=== PATIENT | female | born 1950 | race Caucasian/White ===

== ENCOUNTER 2016-02-18 16:09 | Emergency (ER) | payer MEDICARE ==
[2016-02-18 16:14] VITALS: BP 181/83
[2016-02-18] MEDS ORDERED: NS 0.9% 1000 ML* 1,000 ML IV ONE (17:26)
[2016-02-18] MEDS ORDERED: Ketorolac INJ* 30 MG/ML 1 ML VIAL IV ONE (17:29)
[2016-02-18] MEDS ORDERED: Ondansetron INJ* 2 MG/ML VIAL ONE (17:33)
[2016-02-18] MEDS ORDERED: Ondansetron INJ* 2 MG/ML VIAL IV ONE ×2 (17:33→19:13)
[2016-02-18 17:53] LABS: Hematocrit 44 % (35-47); Hemoglobin 14.8 g/dl (12.0-16.0); Mean Corpuscular HGB Conc 34 g/dl (31-36); Mean Corpuscular Hemoglobin 30 pg (27-31); Mean Corpuscular Volume 88 fL (80-97); Mean Platelet Volume 7 um3 (7.4-10.4); Red Blood Count 4.98 10^6/ul (4.0-5.4); Red Cell Distribution Width 13 % (10.5-15); White Blood Count 10.8 10^3/ul (3.5-10.8)
[2016-02-18 17:54] LABS: Urine Bilirubin Negative (Negative); Urine Glucose Negative (Negative); Urine Nitrite Negative (Negative)
[2016-02-18 18:04] LABS: Albumin 4.8 g/dL (3.2-5.2); BUN/Creatinine Ratio 16.5 (8-20); Calcium 9.8 mg/dL (8.6-10.3); EGFR African American 68.7 (>60); EGFR Non-African American 53.4 (>60); Potassium 3.7 mmol/L (3.5-5.0); Total Protein 7.9 g/dL (6.4-8.9)
--- NOTE | 2016-02-18 18:04 | RAD ---
INDICATION: LEFT flank and LEFT lower quadrant pain. Possible kidney stone. COMPARISON: April 29, [address] which includes the kidneys. TECHNIQUE: Multidetector CT images were obtained from the lung bases to the ischial tuberosities. Evaluation of the viscera is limited without IV contrast. Multiplanar reformation. REPORT: Clear lung bases. Small fat-containing LEFT posterior medial diaphragmatic hernia without change. Normal size liver is diffusely decreased in density consistent with fatty infiltration with focal sparing at the gallbladder fossa. No CT abnormality of the gallbladder, pancreas, spleen. No CT abnormality of the upper GI or small bowel. The appendix is not visualized. Negative for RIGHT lower quadrant inflammatory change. A few colonic diverticula are visualized without findings of acute diverticulitis. Negative for ascites, free air, or significant hernias. Normal adrenal glands. Mild LEFT hydronephrosis is traced to a far distal 3.5 mm LEFT ureteral stone approximating the ureterovesicular junction. Similar size stone previously visualized at upper pole calyx of the LEFT kidney no longer present on the current exam. No additional urolithiasis. Negative for RIGHT hydronephrosis. Unremarkable partially distended urinary bladder. The uterus is not visualized. Unremarkable adnexal regions. Negative for lymphadenopathy. Normal diameter abdominal aorta and iliac arteries. Partial physiologic distention of the IVC. Grossly simple appearing sharply circumscribed fat density lesion extends along the anterior margin of the LEFT psoas muscle from the level of the inferior pole of the LEFT kidney to the lesser trochanter measuring up to 3.6 cm AP by 3.4 cm transverse anterior to the LEFT femoral neck. The visualized portion of this lesion is unchanged compared with the 2012 exam. Small bone island at the RIGHT ischial tuberosity. No suspicious focal osseous lesions evident. IMPRESSION: 1. Mild LEFT hydronephrosis is traced to a far distal 3.5 mm LEFT ureteral stone approximating the ureterovesicular junction. 2. Fatty infiltration of the liver. 3. Large LEFT retroperitoneal lipoma. As the lesion is incompletely visualized on the prior exam follow-up noncontrast CT to assess for stability is suggested in 12 months time.
[2016-02-18 18:05] LABS: Globulin 3.1 g/dL (2-4); Total Bilirubin 0.4 mg/dL (0.2-1.0)
[2016-02-18] MEDS ORDERED: Morphine INJ* 4 MG/ML 1 ML CARPUJECT IV ONE (19:13)
--- NOTE | 2016-02-18 21:07 | ED ---
Harley Melo Rebecca, scribed for Eleuterio Hamm MD on 02/18/16 at 1724 . Abdominal Pain/Female - HPI Summary HPI Summary: Pt is a 65 y/o F who presents to ED c/o abd pain. Pain began suddenly at 1415 today and has been constant since onset. Pain is located in the LLQ with radiation to the L flank. Characterized as sharp and currently moderate, ranked 6/10. Sx aggravated and alleviated by nothing. Additionally c/o nausea and bloating. Denies V/D, constipation. No prior similar episodes. PMHx kidney stones (1x in 2011). - History of Current Complaint Chief Complaint: EDFlankPain Stated Complaint: POSS KIDNEY STONE Time Seen by Provider: 02/18/16 17:21 Hx Obtained From: Patient Onset/Duration: Sudden Onset, Lasting Hours - 1415, Still Present Timing: Constant Severity Initially: Moderate Severity Currently: Moderate Pain Intensity: 6 Pain Scale Used: 0-10 Numeric Location: Discrete At: LLQ Radiates: Yes Radiates to: Back - Left flank Character: Sharp Aggravating Factor(s): Nothing Alleviating Factor(s): Nothing Associated Signs and Symptoms: Positive: Nausea, Other: - Bloating. Negative: Constipation, Vomiting, Diarrhea Allergies/Adverse Reactions: Allergies Allergy/AdvReac Type Severity Reaction Status Date / Time Amoxicillin Allergy Rash Verified 11/14/15 10:17 Penicillins [PCN] Allergy Unknown Verified 11/14/15 10:17 Reaction Details PMH/Surg Hx/FS Hx/Imm Hx Cardiovascular History: Reports: Hx Hypertension History: Reports: Hx Kidney Stones Musculoskeletal History: Reports: Other Musculoskeletal History - Hx herniated discs - Surgical History Surgery Procedure, Year, and Place: APPY, HYSTERECTOMY Infectious Disease History: No Infectious Disease History: Denies: Traveled Outside the [place] in Last 30 Days - Family History Known Family History: Negative: Cardiac Disease, Hypertension - Social History Lives: With Family Alcohol Use: Weekly Hx Tobacco Use: No Smoking Status (MU): Never Smoked Tobacco Review of Systems Positive: Abdominal Pain - LLQ radiates into the L flank, Nausea, Other - Bloating. Negative: Vomiting, Diarrhea Positive: other - Denies constipation All Other Systems Reviewed And Are Negative: Yes Physical Exam - Summary Physical Exam Summary: VITAL SIGNS: Reviewed. GENERAL: Patient is a well developed and nourished female who is lying comfortable in the stretcher. Patient is not in any acute respiratory distress. HEAD AND FACE: Normocephalic and atraumatic. EYES: PERRLA, EOMI x 2, No injected conjunctiva. EARS: Hearing grossly intact. Ear canals and tympanic membranes are WNL. MOUTH: Oropharynx within normal limits. NECK: Supple, trachea is midline, no adenopathy, no JVD. CHEST: Symmetric, no tenderness at palpation LUNGS: Clear to auscultation bilaterally. No wheezing or crackles. CVS: RRR,, S1 and S2 present, no murmurs or gallops appreciated. ABDOMEN: Soft, LLQ tenderness. No signs of distention. Positive bowel sounds. No rebound no guarding, and no masses palpated. No abdominal bruit or pulsations. EXTREMITIES: FROM in all major joints, no edema, no cyanosis or clubbing. NEURO: Alert and oriented x 3. No acute neurological deficits. Speech is normal. SKIN: Dry and warm Vital Signs On Initial Exam: Initial Vitals Temp Pulse Resp BP Pulse Ox 97.3 F 98 16 181/83 100 02/18/16 16:12 02/18/16 16:12 02/18/16 16:12 02/18/16 16:12 02/18/16 16:12 Diagnostics - Vital Signs Vital Signs Temp Pulse Resp BP Pulse Ox 02/18/16 16:12 97.3 F 98 16 181/83 100 - Laboratory Result Diagrams: 02/18/16 17:27 02/18/16 17:27 Lab Statement: Any lab studies that have been ordered have been reviewed, and results considered in the medical decision making process. - CT CT Abd/Pel CT Interpretation Completed By: Radiologist - 1. Mild LEFT hydronephrosis is traced to a far distal 3.5 mm LEFT ureteral stone approximating the ureterovesicular junction. 2. Fatty infiltration of the liver. 3. Large LEFT retroperitoneal lipoma. As the lesion is incompletely visualized on the prior exam follow-up noncontrast CT to assess for stability is suggested in 12 months time. Abdominal Pain Fem Course/Dx - Course Course Of Treatment: 65 y/o F who presents to ED with a CC of L flank pain. Test results within normal limits except for creatinine of 1.02. CT of the abd/ pel shows mild L hydronephrosis with a 3.5 mm L ureter stone, approximating the UVJ. In the ED course, the pt was given if fluids, toradol and morphine for the pain and Zofran for N/V. After pain meds were given the sx seemed to resolve. She was in the ED for a couple hours and sx did not return so she will be d/c to home with a follow up with PCP and urology. I discussed all the findings and test results with the patient and patient. Patient was instructed to return to the emergency room immediately if any of the symptoms return or worsens. They understand and agree. They were explained the possibility of an early abdominal pathology which was not detected at this time despite the physical exam and testing. They understand and agree. Abdominal exam before discharge: Soft,NT. No signs of distention. BS present. No rebound no guarding, and no masses palpated. Patient is alert and oriented. Patient is hemodynamically stable. Patient is to follow up with primary care physician in the next 24 hours. Patient and patients parents agree and understands. - Diagnoses Provider Diagnoses: Kidney stone Discharge - Discharge Plan Condition: Stable Disposition: HOME Patient Education Materials: Kidney Stones (ED) Referrals: Ryan Melendez MD [Primary Care Provider] - 3 Days (Follow up with your primary care physician within the next 3 days. ) Ezequiel Eng MD [Medical Doctor] - 3 Days (Follow up with Dr. Eng, urologist, within the next 3 days. ) Additional Instructions: Return to ED for any returning or worsening of symptoms. The documentation as recorded by the Harley mello Rebecca accurately reflects the service I personally performed and the decisions made by me, Eleuterio Hamm MD.
[2016-02-18] MEDS ORDERED: oxyCODONE/Acetamin 5/325 MG* TAB PO ONE (21:12)
[2016-02-18] MEDS ORDERED: Ondansetron TAB* 4 MG PO ONE (21:26)
== END 2016-02-18 22:03 | disposition home or self-care (01) ==
LOC: ED 16:09
DX: N20.0 Calculus of kidney (principal); I10 Essential (primary) hypertension; Z87.442 Personal history of urinary calculi; N13.30 Unspecified hydronephrosis
CPT/HCPCS: 36415; 74176; 80053; 81003; 83605; 84484; 85025; 96360; 96361; 96365; 96374; 96375; 99283; A9270-GY; J1885; J2270; J2405